=== PATIENT | female | born 1995 | race Caucasian/White ===

== ENCOUNTER 2017-06-30 15:01 | Emergency (ER) | payer OTHER ==
[~2017-06-30] VITALS: Ht 165.1 cm; Wt 67.0 kg
[2017-06-30 15:10] VITALS: BP 119/61
== END 2017-06-30 19:30 | disposition left against medical advice (07) ==
LOC: ER 16:01
DX: S61.219A Laceration without foreign body of unspecified finger without damage to nail, initial encounter (principal); X58.XXXA Exposure to other specified factors, initial encounter; Y93.89 Activity, other specified; Y92.89 Other specified places as the place of occurrence of the external cause; Y99.8 Other external cause status

== ENCOUNTER 2020-09-15 09:55 | Emergency (ER) | payer OTHER ==
[~2020-09-15] VITALS: Ht 165.1 cm; Wt 63.0 kg
[2020-09-15 11:59] LABS: BASOPHILS % 0.6 % (0.0-2.0); EOSINOPHILS % 3.4 % (0.0-5.0); HEMOGLOBIN. 14.1 g/dL (12.0-16.0); LYMPHOCYTES % 22.9 % (20.0-50.0); MEAN CORPUSCULAR HEMOGLOBIN 29.8 pg (28.0-32.0); MEAN CORPUSCULAR VOLUME 88.6 fL (81.0-99.0); MEAN PLATELET VOLUME 7.7 fl (7.4-10.4); MONOCYTES % 6.6 % (2.0-8.0); NEUTROPHILS % 66.5 % (40.0-76.0); PLATELET 296 x1000/uL (130-400); RED BLOOD CELL COUNT 4.74 mill/uL (4.2-5.4); RED CELL DISTRIBUTION WIDTH 12.8 % (11.6-14.6)
[2020-09-15 12:02] LABS: COLOR URINE YELLOW (YELLOW); KETONES URINE NEGATIVE (NEGATIVE); LEUKOCYTE ESTERASE URINE 1+ (NEGATIVE); NITRITE URINE NEGATIVE (NEGATIVE); OCCULT BLOOD URINE 3+ (NEGATIVE); PROTEIN URINE TRACE (NEGATIVE); SPECIFIC GRAVITY URINE 1.005 (1.005-1.030); UROBILINOGEN URINE 0.2 E.U./dL (0.2-1.0)
[2020-09-15 12:05] LABS: CHLORIDE 110 mEq/L (98-107)
[2020-09-15 12:07] LABS: CLARITY URINE CLOUDY (CLEAR)
[2020-09-15 12:15] LABS: B-HCG QUANTITATIVE < 1 mIU/mL (<3)
[2020-09-15 12:20] LABS: PROTHROMBIN TIME 10.8 sec (9.6-11.0)
[2020-09-15] MEDS ORDERED: NITR-87 MT (12:28)
[2020-09-15 12:35] VITALS: BP 106/66
== END 2020-09-15 13:00 | disposition home or self-care (01) ==
LOC: ER 09:55
DX: N30.00 Acute cystitis without hematuria (principal); J45.909 Unspecified asthma, uncomplicated
CPT/HCPCS: 36415; 76830; 76856; 80053; 81003; 81025; 84702; 85025; 85610; 86850; 86900; 86901; 99284; Z7610